=== PATIENT | male | born 1960 | race Caucasian/White ===

== ENCOUNTER → 2017-05-09 | Outpatient (CLI) | payer BC, OTHER ==
[~2017-05-09] MED LIST: CARISOPRODOL250 MG PO; LEVSOD100 PO; LIOT25 PO; Omeprazole20 M1; Oxycodone HCl20 M1 PO; PRED5 PO; XARELTO15 MG PO
[2017-05-09 13:03] LABS: Protein, Urine Quantitative <5.0 mg/dL (0.0-11.9)
== END | disposition home or self-care (01) ==
LOC: LAB EV 12:00
PROVIDERS: Internal Medicine
DX: E88.09 Other disorders of plasma-protein metabolism, not elsewhere classified (principal)
CPT/HCPCS: 81050; 84156

== ENCOUNTER 2019-12-16 08:46 | Day surgery (SDC) | payer OTHER ==
[~2019-12-16] VITALS: Ht 177.8 cm; Wt 96.2 kg
[~2019-12-16 08:46] MED LIST changes: +ACTEMRA162 MG/0.1 SC; +GABA300 PO; +LEVSOD75 PO; +LOSA25 PO; +Narcan 0.40.4 MG/ML; +OMEP20ER PO; +PANT40 PO; +Voltaren100 GM TOP; +XARELTO20 M1 PO
--- NOTE | 2019-12-16 09:48 | NUR ---
Ambulatory in Day Surgery. Surgical site prepped with 2% Chlorhexidine cloth wipe. History, Chart, Medications and Allergies reviewed before start of procedure. Lungs clear T/O to Auscultation. Patient confirms NPO status and agrees with scheduled surgery. Pre-Op teaching done. Pt verbalizes understanding. Patient States Post-Procedure ride home has been arranged. Patient reports completing Chlorhexadine shower X2 prior to admission to hospital.
--- NOTE | 2019-12-16 16:17 | NUR ---
1550 TO STEP FROM PACU AWAKE.S/P ABD HERNIA REPAIR. 3 2X2 ABD DRESSINGS D&I.PRESTON PO FLUIDS AND CRACKERS.SPOKE WITH IN WAITING ROOM AND GAVE UPDATE ON PATIENT. 1605 DISCHARGE INSTRUCTS REVIEWED WITH PATIENT AND . TO CAR VIS W/C CARE TURNED OVER TO
== END 2019-12-16 23:21 | disposition home or self-care (01) ==
LOC: ORSCMMR 08:46 → ORD 10:00 → ORSCMMR 10:00
PROVIDERS: Surgery
PROC: 0YU54JZ Supplement Right Inguinal Region with Synthetic Substitute, Percutaneous Endoscopic Approach (ICD-10-PCS; principal; 2019-12-16 10:00)
PROC: 8E0W4CZ Robotic Assisted Procedure of Trunk Region, Percutaneous Endoscopic Approach (ICD-10-PCS; principal; 2019-12-16 10:00)
DX: K40.90 Unilateral inguinal hernia, without obstruction or gangrene, not specified as recurrent (principal); I10 Essential (primary) hypertension; E03.9 Hypothyroidism, unspecified; K21.9 Gastro-esophageal reflux disease without esophagitis; Z79.899 Other long term (current) drug therapy
CPT/HCPCS: 49650; S2900; A9270-GY; C1781; J0360; J0690; J1100; J1720; J1885; J2250; J2370; J2405; J2704; J3010; J7120

== ENCOUNTER 2020-02-29 22:15 | Inpatient (IN) | payer OTHER ==
[~2020-02-29] VITALS: Ht 177.8 cm; Wt 94.5 kg
[2020-02-29 22:48] LABS: BASOPHILS ABSOLUTE AUTO 0.03 K/mm3 (0.00-0.23); BASOPHILS PERCENT AUTO 1 % (0-2); EOSINOPHILS ABSOLUTE AUTO 0.03 K/mm3 (0.00-0.68); EOSINOPHILS PERCENT AUTO 1 % (0-6); Hematocrit 47.4 % (37.0-53.0); IMMATURE GRAN ABSOLUTE AUTO 0.05 K/mm3 (0.00-0.10); IMMATURE GRAN PERCENT AUTO 1 % (0-1); LYMPHOCYTES ABSOLUTE AUTO 1.19 K/mm3 (0.84-5.20); LYMPHOCYTES PERCENT AUTO 18 % (21-46); MONOCYTES ABSOLUTE AUTO 0.47 K/mm3 (0.16-1.47); MONOCYTES PERCENT AUTO 7 % (4-13); Mean Corpuscular HGB 34.1 pg (26.0-34.0); Mean Corpuscular HGB Conc 33.8 g/dL (31.5-36.5); Mean Corpuscular Volume 101 fL (80-100); Mean Platelet Volume 10.2 fL (9.1-12.4); NEUTROPHILS ABSOLUTE AUTO 4.84 K/mm3 (1.96-9.15); NEUTROPHILS PERCENT AUTO 73 % (41-73); Platelet Count 221 K/mm3 (150-400); RDW Coefficient Variation 11.9 % (11.7-14.2); RDW Standard Deviation 44.9 fL (35.1-46.3); Red Blood Cell Count 4.69 M/mm3 (4.30-5.90); White Blood Cell Count 6.61 K/mm3 (4.00-11.30)
[2020-02-29 23:07] LABS: Alanine Aminotransfer (ALT/SGP 35 U/L (12-78); Albumin/Globulin Ratio 1.4 (0.8-1.8); Alk Phos 69 U/L (50-136); Anion Gap 6 mmol/L (6-16); Aspartate Aminotrans (AST/SGOT 27 U/L (12-37); Beta HCG, Quantitative, Serum <1 mIU/mL (0-1); Bilirubin, Total 0.4 mg/dL (0.1-1.0); Blood Urea Nitrogen 13 mg/dL (8-24); CO2, Blood 26 mmol/L (21-32); Calcium, Blood 8.4 mg/dL (8.5-10.1); Chloride, Blood 109 mmol/L (98-108); Creatinine, Blood 1.08 mg/dL (0.60-1.20); Ethanol (Alcohol), Blood, Med 138 mg/dL; Globulin, Blood 2.9 g/dL (2.2-4.0); Glomerular Filtration Rate >60 (60-); Glucose, Blood 142 mg/dL (70-99); Potassium, Blood 3.9 mmol/L (3.5-5.5); Sodium, Blood 141 mmol/L (136-145); Total Protein, Blood 6.9 g/dL (6.4-8.2)
--- NOTE | 2020-03-01 06:58 | NUR ---
SHIFT SUMMARY LYING IN SEMI FOWLERS WITH EYES OPEN WHILE WATCHING TV WITH SPOUSE AT BEDSIDE. AAO X3, FOLLOWS ALL COMMANDS. PAIN MANAGED WITH PRN PAIN MEDS Q2HRS. STATED NOW THAT MANAGEMENT NOT GOOD PREVIOUS TIMES. HE AND HIS REQUEST THAT HE GET PUT BACK ON HIS ROUTINE PAIN MANAGEMENT SCHEDULE IN ADDITION TO PRN MEDS. DENIES FURTHER NEEDS OR WANTS AT THIS TIME. SAFETY MEASURES IN PLACE. WILL CONTINUE TO MONITOR AND GIVE HAND OFF TO ONCOMING SHIFT USING SBAR.
--- NOTE | 2020-03-01 10:35 | NUR ---
CONTINIOUS BI OX APPLIED FOR HIGH RISK PAIN MANAGEMENT. WHEN APPLIED, HR NOTED TO BE 48-[address] CHO NOTIFIED. NO NEW ORDERS AT THIS TIME. WILL CTM
[2020-03-01 13:08] LABS: Hematocrit 43.4 % (37.0-53.0); Hemoglobin 14.7 g/dL (13.5-17.5)
[2020-03-01 13:24] LABS: Magnesium, Blood 2.2 mg/dL (1.6-2.4); Potassium, Blood 3.4 mmol/L (3.5-5.5)
--- NOTE | 2020-03-01 14:09 | NUR ---
BROUGHT TO [facility] ADMISSION STARTED VSS RATES PAIN AT 7 STATES ITS THE BEST ITS BEEN ALL DAY
--- NOTE | 2020-03-01 14:21 | NUR ---
PT LEFT UNIT FOR PRECEEDURE AT ABOUT 1400
--- NOTE | 2020-03-01 15:13 | NUR ---
03/01/20 1513 Yovani Deras 3-LEAD EKG REVIEWED WITH PHYSICIAN PRIOR TO START OF PROCEDURE.Patient to ENDO 2. History, Chart, Medications and Allergies reviewed before start of procedure.Patient confirms NPO status and agrees with scheduled surgery.
--- NOTE | 2020-03-01 15:35 | NUR ---
CALL TO GIVE REPORT TO SURGICAL FLOOR NURSE, WILL CALL BACK SOON TO RECIEVE REPORT AFTER DISCHARGING ANOTHER PATIENT
--- NOTE | 2020-03-01 15:55 | NUR ---
POST OP REPORT RECEIVED FROM JONAH INCOME TAX INVESTIGATOR AT THIS TIME
--- NOTE | 2020-03-01 16:11 | NUR ---
CALL FROM DOCTOR WILL NEED TO REDO CHEST TUBE. CALL TO [facility] CHARGE AND OR CHARGE
--- NOTE | 2020-03-01 16:39 | NUR ---
03/01/20 8119 Ramirez Derasy Returned from ENDO 2. MONITOR INTACT WITH CONTINUOUS PULSE OXIMETRY AND INTERMITTENT BP.O2 VIA N/C INTACT THROUGHOUT SEDATION/PROCEDURE. WITH POM MASK. MONITOR INTACT WITH CONTINUOUS PULSE OXIMETRY AND INTERMITTENT BP.
--- NOTE | 2020-03-01 18:04 | NUR ---
WHEN PATIENT WAS TRANSFERRED TO SURGICAL FLOOR AFTER XRAY WASS READ BY DOCTOR CHO.
--- NOTE | 2020-03-01 18:38 | NUR ---
SUMMARY: PT HAS RETURNED FROM CHEST TUBE PROCEDURE. CHEST TUBE TO SUCTION. CANISTER IS BUBBLING AND THERE IS FLUCTUATION. BREATH SOUNDS CLEAR AND DIM BILATERALLY. PT DENIES SOB, SP02 STABLE ON RA. BI OX IN PLACE. CHEST RISE AND FALL IS EVEN. PT MEDICATED FOR PAIN THROUGH OUT THE DAY, SEE EMAR. HOSPITALIST, DR. ALEJANDRO SAW PT AND ORDERED HOME MEDS. PT ABLE TO STAND AND TRANSFER WELL VOID. CURRENTLY PT DOING WELL, REPORTS TIRED AFTER A LONG DAY. NO ACUTE SAFETY CONCERNS, PT AT BEDSIDE. WILL CTM AND REPORT TO NOC RN
--- NOTE | 2020-03-02 02:42 | NUR ---
REPORT GIVEN TO Aguilar HOWE RN, AND Mary OROZCO RN.
--- NOTE | 2020-03-02 02:51 | NUR ---
ASSUMED CARE ASSUMED CARE OF PT AT THIS TIME, RECEIVED REPORT FROM Mony ROMERO RN.
--- NOTE | 2020-03-02 06:19 | NUR ---
SHIFT SUMMARY PTX, RIB FX, SCAPULA FX, A/O X4, VSS, CHEST TUBE DRAINING PROPERLY, PAIN CONTROLLED PER EMAR, AMBULATING WELL, TOLERATING PO, VOIDING WELL. WILL CONTINUE TO MONITOR AND REPORT TO ONCOMING DAY RN.
--- NOTE | 2020-03-02 16:00 | NUR ---
REPORT GIVEN TO SULMA HUDSON AT THIS TIME
--- NOTE | 2020-03-02 16:06 | NUR ---
ASSUMED CARE OF PATIENT. PT SITTING UP IN CHAIR, REPORTS PAIN 8/10 MEDICATED FOR PAIN. CHEST TUBE IN PLACE TO WATER SEAL. SS DRAINAGE VIA CHEST TUBE
--- NOTE | 2020-03-02 17:16 | NUR ---
SUMMARY PT REPORTS ADEQUATE PAIN CONTROL WITH CURRENT REGIME. RIGHT CHEST TUBE TAPED SECURELY IN PLACE DRESSING DRY AND INTACT. PT DENIES SOB NO SQ CREPITUS NOTED. CHEST TUBE TO WALL SUCTION, SS DRAINAGE
--- NOTE | 2020-03-03 04:38 | NUR ---
SHIFT SUMMARY PT RESTING INTERMITTENTLY THIS AM. AAOX4. DISCOMFORT CONTROLLED WITH 20MG ROXICODONE Q4H PER HOME DOSING FOR CHRONIC BACK PAIN + 50mcg FENTANYL FOR BREAKTHROUGH X2 THIS SHIFT. NO NAUSEA/EMESIS. IVF PER ORDERS. LUNG SOUNDS DIMINISHED T/O, PT DEMONSTRATED INCENTIVE SPIROMETRY USE + ENCOURAGE TO CONTINUE USE TOLERATED. CHEST TUBE TO RIGHT ANTERIOR CHEST SECURE WITH GAUZE DRESSING C/D/I. UP TO BSC WITH LARGE AMOUNTS OF FLATUS, NO BM. GOOD PO INTAKE + OUTPUT. RUE SORE FROM SCAPULA FX + PLACED ON PILLOW FOR COMFORT. AT BEDSIDE T/O NIGHT TO ASSIST WITH CARE. CONT PULSE OXIMETRY IN PLACE.
--- NOTE | 2020-03-03 17:13 | NUR ---
CHEST TUBE WAS TAKEN OUT AT [address] HOUGH. PLAN FOR RE-PEAT CHEST XRAY FOR IN THE MORNING.
--- NOTE | 2020-03-03 17:20 | NUR ---
SHIFT SUMMARY: PATIENT HAS BEEN ALERT AND ORIENTATED X4 THROUGHOUT SHIFT. HE HAS HAD WITHIN NORMAL LIMITS VITALS. HE IS ON ROOM AIR. HE JUST HAD HIS CHEST TUBE REMOVED BY DR. CHO. HIS PAIN HAS BEEN WELL MANAGED BY FENTANYL, GUADALUPE, AND TORADOL. DR. HOUGH WANTS HIM TO WEAN HIMSELF OFF OF THE FENTANYL SINCE HE MIGHT GO HOME TOMORROW. HE HAS BEEN EATING ADEQUATELY FOR EACH MEAL. HIS HAS BEEN AT THE BEDSIDE ALL DAY TO HELP WITH SOME TASKS. HE DID HAVE A BOWEL MOVEMENT AND HAS BEEN ABLE TO VOID. WILL CONTINUE TO MONITOR PATIENT UNTIL ONCOMING NIGHTSHIFT NURSE COMES TO RECIEVE REPORT.
--- NOTE | 2020-03-04 05:49 | NUR ---
SHIFT SUMMARY PT RESTED BETTER THIS NOC SHIFT FROM PREVIOUS. AAOX4. DISCOMFORT MINIMIZED WITH 20MG ROXICODONE Q4H + TORADOL Q6H. 50mcg FENTANYL X2 FOR BREAKTHROUGH THIS SHIFT. LUNG SOUND DIMINISHED/CLEAR TO BASES BILATERALLY, AWAITING CHEST X-RAY THIS AM. PT UP TO BSC INDEPENDENTLY, X3 LARGE BMs. GOOD PO INTAKE + OUTPUT. PT CURRENTLY RESTING IN BED WITH CALL LIGHT IN REACH.
[2020-03-04] MEDS ORDERED: FENTANYL1 EAC7 TOP (14:00)
--- NOTE | 2020-03-04 14:38 | NUR ---
DISCHARGE NOTE: PATIENT AND SIGNIFICANT OTHER WERE EDUCATED ON DISCHARGE INSTRUCTIONS. NEITHER THE PATIENT OR THE S/O HAD QUESTIONS. PATIENT WAS ALERT AND ORIENTED X4 THROUGHOUT STAY. HIS VITALS WERE WITHIN NORMAL LIMITS AND WAS ON ROOM AIR. HE WAS ABLE TO VOID, PASS GAS, AND HAVE A BOWEL MOVEMENT. HE HAD ALL OF HIS BELONGINGS IN BAGS READY TO GO. HIS PAIN MED PERSCRIPTION WAS IN THE DISCHARGE PACKET AND PATIENT KNOWS. HE WAS PLEASANTFUL AND GRATEFUL FOR THE EXPERIENCE. HE WILL BE GOING HOME WITH HIS S/O BY CAR. HE WALKED OUT WITH S/O.
== END 2020-03-04 14:19 | disposition home or self-care (01) | DRG 200 ==
LOC: ER 22:15 → SURS 03-01 01:13
PROVIDERS: Nurse Practitioner Acute Care; Student in an Organized Health Care Education/Training Program; Surgery; ADMIT Surgery
PROC: 0W9900Z Drainage of Right Pleural Cavity with Drainage Device, Open Approach (ICD-10-PCS; principal; 2020-03-01 14:00)
DX: J93.9 Pneumothorax, unspecified (principal); S22.49XA Multiple fractures of ribs, unspecified side, initial encounter for closed fracture; S42.109A Fracture of unspecified part of scapula, unspecified shoulder, initial encounter for closed fracture; V86.99XA Unspecified occupant of other special all-terrain or other off-road motor vehicle injured in nontraffic accident, initial encounter; Z20.828 Contact with and (suspected) exposure to other viral communicable diseases; R40.2412 Glasgow coma scale score 13-15, at arrival to emergency department; I10 Essential (primary) hypertension; E03.9 Hypothyroidism, unspecified; E87.6 Hypokalemia; Z86.718 Personal history of other venous thrombosis and embolism; Z79.01 Long term (current) use of anticoagulants; Z79.52 Long term (current) use of systemic steroids
CPT/HCPCS: 32551; 36415; 70450; 71045; 71260; 74177; 80053; 83690; 83735; 84132; 84702; 85014; 85018; 85025; 94762; 96374-59; 96375; 99285-25; A9270; G0480; J1170; J1885; J2250; J2270; J3010; J7120; J7512; Q9967; U0003

== ENCOUNTER → 2023-02-17 | Outpatient (CLI) | payer MEDICARE, OTHER ==
[~2023-02-17] MED LIST changes: +FENTANYL1 EAC7 TOP
[2023-02-17 16:20] LABS: U Amphetamine Screen Not Detected; U Barbituate Screen Not Detected; U Benzodiazapine Screen Not Detected; U Cannabinoids Screen DETECTED; U Cocaine Screen Not Detected; U Methadone Screen Not Detected; U Methamphetamine Screen Not Detected; U Opiates Screen Not Detected; U Oxycodone Screen DETECTED; U Phencyclidine Screen Not Detected
[2023-02-17 16:21] LABS: U Buprenorphine Screen Not Detected; U Propoxyphene Screen Not Detected
[2023-02-20 19:09] LABS: CARBOXY-THC 712 (.)
== END | disposition home or self-care (01) ==
LOC: LAB 15:22 → LAB SHORT 15:22
PROVIDERS: Internal Medicine
DX: Z51.81 Encounter for therapeutic drug level monitoring (principal); Z79.891 Long term (current) use of opiate analgesic
CPT/HCPCS: G0480